=== PATIENT | male | born 1980 | race Caucasian/White ===

== ENCOUNTER 2017-07-26 23:49 | Emergency (ER) | payer OTHER ==
[~2017-07-26] VITALS: Ht 185.4 cm; Wt 97.5 kg
[2017-07-27] MEDS ORDERED: TRAMADOL 50 MG50 MG PO (00:11)
[2017-07-27] MEDS ORDERED: IBUPROFEN 800800 M1 PO (00:11)
[2017-07-27 00:39] VITALS: BP 147/91
== END 2017-07-27 00:40 | disposition home or self-care (01) ==
LOC: M.ERS 23:49
DX: S63.650A Sprain of metacarpophalangeal joint of right index finger, initial encounter (principal); Z88.8 Allergy status to other drugs, medicaments and biological substances; W31.89XA Contact with other specified machinery, initial encounter; Y93.89 Activity, other specified; Y92.89 Other specified places as the place of occurrence of the external cause; Y99.0 Civilian activity done for income or pay